=== PATIENT | male | born 1995 | race Caucasian/White ===

== ENCOUNTER 2020-01-10 15:44 | Emergency (ER) | payer SELFPAY ==
[2020-01-10 15:50] VITALS: BP 141/68; PULSE 65; RESP 18; TEMP 36.9; O2SAT 99
--- NOTE | 2020-01-10 16:03 | ED.GENADULT ---
HPI - General Adult General Chief complaint: Nausea/Vomiting/Diarrhea Stated complaint: fever/diarrhea Time Seen by Provider: 01/10/20 16:03 Source: patient and RN notes reviewed Mode of arrival: ambulatory Limitations: no limitations History of Present Illness HPI narrative: 24 year old male who presents to [facility] care with complaints of having diarrhea and fever up to 99.8F for 2 days and he had to miss work due to his illness. Patient states no diarrhea since yesterday morning had small formed stool this morning and he was able to eat toast and eggs without problem. Patient denies any episodes of nausea or vomiting or any abdominal pain, states no temperature elevation for 24 hours. Patient denies any headache, sore throat or any cold symptoms, denies any body aches, cough, or shortness of breath. MD complaint: diarrhea and fever episode Onset (ago): day(s) (3) Radiation: other (no pain) Severity: mild Pain Consistency: now resolved Relieving factors: none Exacerbating factors: eating Associated symptoms: fever/chills and other (diarrhea) Treatments prior to arrival: none Related Data Home Medications Medication Instructions Recorded Confirmed No Home Medications 01/10/20 01/10/20 Allergies Allergy/AdvReac Type Severity Reaction Status Date / Time No Known Allergies Allergy Verified 01/10/20 16:05 Review of Systems Review of Systems: Narrative: CONSTITUTIONAL Temperature highest of 99.8 no fever for 24 hours, no fever, chills, or sweats presently EYES: Denies visual changes, redness, or discharge. ENT: Denies rhinorrhea, congestion, sore throat, or otalgia. CARDIOVASCULAR: Denies chest pain, palpitations, or edema. RESPIRATORY: Denies cough or dyspnea. GASTROINTESTINAL: Denies abdominal pain, nausea, vomiting,episodes of diarrhea for 2 days now resolved. GENITOURINARY: Denies dysuria or hematuria. SKIN: Denies rash or itching. MUSCULOSKELETAL: Denies back pain, joint pain, or myalgia. NEUROLOGIC: Denies headache, numbness, or weakness. PSYCHIATRIC: Denies anxiety or depression. All systems reviewed & are unremarkable except as noted in HPI and below PMFSH Past Medical History Medical History (Updated 01/11/20 @ 00:00 by Emile Isabel) Fracture, ankle Surgical History Surgical History (Updated 01/10/20 @ 16:12 by Merly Bolton NP) History of testicular surgery Social History Social History (Updated 01/12/20 @ 15:33 by Merly Bolton NP) Smoking status: Never smoker Additional smoking assessment comments: vaping Alcohol intake: current Living arrangements: with family Gender identity (if verbalized by the patient): Male Comments At time of signature, agree with nursing past medical, surgical, social history. There is no relevant family history pertinent to the presenting complaint Exam Narrative: Exam Narrative: GENERAL: Well-appearing, well-nourished, and in no acute distress. HEAD: Normocephalic, atraumatic. EYES: PERRLA and EOMI. ENT: Nares clear, no rhinorrhea or epistaxis. Mucous membranes moist.TM's normal with good light reflex, throat pink with no swelling, exudates or lesions. NECK: Supple.no lymphadenopathy CHEST: Clear to auscultation. No respiratory distress.SAO2 99% on room air HEART: Regular rate and rhythm. No murmur heard. Normal peripheral pulses. ABDOMEN: Soft, nontender to palpation, negative McBurney point tenderness, nondistended, normal active bowel sounds. EXTREMITIES: Normal range of motion. No edema. SKIN: Warm, dry, no rash. NEURO: No focal deficits. Alert and oriented x3. Course Vital Signs Vital signs: Vital Signs Temperature 36.9 C 01/10/20 15:50 Pulse Rate 65 01/10/20 15:50 Respiratory Rate 18 01/10/20 15:50 Blood Pressure 141/68 H 01/10/20 15:50 Pulse Oximetry 99 01/10/20 15:50 Temperature 36.9 C 01/10/20 15:50 Pulse Rate 65 01/10/20 15:50 Respiratory Rate 18 01/10/20 15:50 Blood Pressure 141/68 H
== END 2020-01-10 16:35 | disposition home or self-care (01) ==
PROVIDERS: Emergency Provider Registered Nurse
DX: K21.9 Gastro-esophageal reflux disease without esophagitis (principal)
CPT/HCPCS: 99211; G0463